=== PATIENT | female | born 1940 | race Caucasian/White ===

== ENCOUNTER 2023-09-30 15:21 | Emergency (ER) | payer BC, SELFPAY ==
[2023-09-30 15:24] VITALS: BP 157/90
--- NOTE | 2023-09-30 19:01 | ED.MUSCINJ ---
HPI-Injury
General
Chief Complaint: Musculo-Skeletal Complaint
Source: patient
Exam Limitations: none
Time Seen by Provider: 09/30/23 18:29
History of Present Illness-Injury
Initial Injury comments:
83-year-old female presents complaining of increased pain and swelling to the right knee. She has known arthritis to the right knee she received a corticosteroid injection into the right knee 8 days ago. Starting yesterday her knee started to
flareup. She denies a fever. She is on Xarelto. No new injury. No other complaints at this time
Phy Exam
Physical Exam
Physical Exam:
General: Well-appearing female no acute respiratory distress
Musculoskeletal exam: Right knee with large effusion but no overlying erythema or excessive warmth. She is able to straight leg raise flexion is limited to about 90 degrees. No significant tenderness on exam
Extremities: No cyanosis or edema.
Injury Course
Orders/Labs/Results
Orders:
Orders
09/30/23 15:28
Knee, Right 4 or More Views [CR Knee- Right 4 Or More View*] Urgent
Comment:
Reason For Exam: pain
MDM/Problems Addressed
Differential Diagnosis Includes:
Knee effusion with pain. Question inflammatory. Do not suspect septic arthritis given lack of fever good motion and lack of skin changes. Could be sequela of underlying degenerative change versus adverse effect from recent corticosteroid
injection.
X-rays obtained through triage with her personally visualized shows a large effusion and significant degenerative change. Discussed with patient. 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 For
therapeutic reasons we discussed aspiration of the knee to regain motion and help pain. She was in agreement. The right knee was aspirated under sterile conditions. Unfortunately the effusion in the knee is hemorrhagic and the majority of
effusion is clotted blood. I was able to receive 10 mL of bloody aspirate. This was not sent for testing as clinical suspicion for septic arthritis is low. Patient cannot do NSAIDs but will prescribe several days of a prednisone to help. Knee
immobilizer applied and will follow-up with her orthopedic
*Critical Care Note
Total Time (30-74mins, 75-104mins- exclusive of procedures): Not Applicable
ED Attending Note
-
Portions of this chart may have been created with voice recognition software.� Occasional wrong word or��sound alike� substitutions may have occurred due to the inherent limitations of voice recognition software.
Discharge Plan
Departure
Patient Disposition: Home (Routine Discharge)
Date of Disposition: 09/30/23
Time of Disposition: 19:10
Patient with high blood pressure during this ER visit?: No
Discharge Problem:
Effusion of knee
Instructions: Muscle and Bone Pain (DC)
Prescriptions:
New
prednisone 10 mg Tablet
See Rx Instructions .ROUTE .COMPLEX Qty: 30 0RF
Rx Instructions:
Take By Mouth:
40 mg daily x3 days, 30 mg daily x3 days,
20 mg daily x3 days, 10 mg daily x3 days.
Referrals:
Vanessa Reyes MD [Family Provider] -
Activity Restrictions/Additional Instructions:
Take prednisone as directed. Use immobilizer for support when ambulating. Follow-up with your orthopedic team
Discharge Date and Time
Print Language: FAROESE
[2023-09-30] MEDS: DELTASONE 50 MG PO (19:18)
[2023-09-30 19:45] VITALS: BP 158/88
== END 2023-09-30 19:49 | disposition home or self-care (01) ==
LOC: EMR 15:21
PROVIDERS: EMERGENCY PHYSICIAN Student in an Organized Health Care Education/Training Program; FAMILY PHYSICIAN Internal Medicine
DX: M25.461 Effusion, right knee (principal); M25.561 Pain in right knee; R26.2 Difficulty in walking, not elsewhere classified; M17.11 Unilateral primary osteoarthritis, right knee; Z79.01 Long term (current) use of anticoagulants
CPT/HCPCS: 20610; 99283; 73564

== ENCOUNTER → 2024-05-20 14:00 | Outpatient (REF) | payer BC, SELFPAY | LOC: HWRCS 14:00 | PROVIDERS: ATTENDING PHYSICIAN Internal Medicine Cardiovascular Disease; FAMILY PHYSICIAN Internal Medicine | DX: I48.20 Chronic atrial fibrillation, unspecified (principal); R01.1 Cardiac murmur, unspecified | CPT/HCPCS: 93306 ==

== ENCOUNTER 2024-08-27 11:58 | Emergency (ER) | payer BC, SELFPAY ==
[2024-08-27 12:10] VITALS: BP 146/102
--- NOTE | 2024-08-27 13:57 | ED.MUSCINJ ---
HPI-Injury
General
Chief Complaint: Musculo-Skeletal Complaint
Source: patient
Exam Limitations: none
Time Seen by Provider: 08/27/24 13:38
History of Present Illness-Injury
Initial Injury comments:
83-year-old female Sonia complaining of left knee pain and foot pain after a fall she sustained last evening. She also fell backwards and hit her head. She is on Xarelto. She did have significant pain at the time of the fall she is able to get
herself back in the bed however overnight the knee swelled and her pain is worse. No other complaints at this time
Phy Exam
Physical Exam
Physical Exam:
General: Well-appearing female no acute respiratory distress HEENT: Normocephalic no scalp abrasion or hematoma
Heart: Regular rate and rhythm
Lungs: Clear no wheeze
Musculoskeletal exam: Left knee with large effusion and diffusely tender. No deformity able to straight leg raise flexion is to about 50 degrees.
Left foot is nontender.
Injury Course
Orders/Labs/Results
Orders:
Orders
08/27/24 12:[address] [CT Head W/o Iv Contrast] Urgent
Comment:
Reason For Exam: head strike +thinner
CR Foot - Left Min 3 Views Urgent
Comment:
Reason For Exam: pain injury
CR Knee - Left 4 Or More View* Urgent
Comment:
Reason For Exam: pain injury
08/27/24 13:56
Acetaminophen with Codeine [Tylenol #3] 1 tablet PO NOW STA
MDM/Problems Addressed
Differential Diagnosis Includes:
Left knee and foot pain after fall with head strike on blood thinner. Consider fracture versus sprain versus underlying degenerative joint disease. Regarding the head consider fracture versus intracranial hemorrhage. CT of the head was ordered
which is negative. X-ray of the left knee shows a large joint effusion but no fracture. There is significant degenerative changes throughout the knee. X-ray left foot demonstrates nondisplaced fracture of the left fifth toe.
Offered knee immobilizer declined. Will evaluate her functional status. She is going home by herself.
*Pulse Oximetry
SaO2: 96
Oxygen Mode of Delivery: Room air
Patient hypoxic: no
*Critical Care Note
Total Time (30-74mins, 75-104mins- exclusive of procedures): Not Applicable
Update Note
Update Note:
X-rays all reviewed and negative other than a small nondisplaced fracture of the left fifth toe proximal phalanx. I suspect symptoms of near related to underlying degenerative change. There may be a traumatic effusion. No indication for
aspiration at this time. Offered knee immobilizer she declined. She was able to walk around here with a walker self to the bathroom.
ED Attending Note
-
Portions of this chart may have been created with voice recognition software.� Occasional wrong word or��sound alike� substitutions may have occurred due to the inherent limitations of voice recognition software.
Discharge Plan
Departure
Patient Disposition: Home (Routine Discharge)
Date of Disposition: 08/27/24
Time of Disposition: 14:44
Patient with high blood pressure during this ER visit?: No
Discharge Problem:
Effusion of knee
Instructions: Muscle and Bone Pain (DC)
Prescriptions:
No Action
prednisone 10 mg Tablet
See Rx Instructions .ROUTE .COMPLEX Qty: 30 0RF
Rx Instructions:
Take By Mouth:
40 mg daily x3 days, 30 mg daily x3 days,
20 mg daily x3 days, 10 mg daily x3 days.
Referrals:
Vanessa Reyes MD [Family Provider]
Activity Restrictions/Additional Instructions:
Use walker to ambulate. Elevate for swelling. Continue with Tylenol if needed for pain. Follow-up with the orthopedic doctor.
Interventions
Interventions:
*Risk Screen - Suicide Last Done: 08/27/24 12:10
*General Assessment Last Done: 08/27/24 12:10
*Neglect/Abuse Screening Last Done: 08/27/24 12:10
*ED- Fall Risk Assessment Last Done: 08/27/24 12:10
*ED COVID-19 Vaccine History Last Done: 08/27/24 12:10
ED-Musculoskeletal Assessment Last Done: 08/27/24 14:15
Discharge Date and Time
Print Language: ESTONIAN
[2024-08-27] MEDS: TYLENOL #3 1 TABLET PO (14:08)
== END 2024-08-27 14:49 | disposition home or self-care (01) ==
LOC: EMR 11:58
PROVIDERS: EMERGENCY PHYSICIAN Student in an Organized Health Care Education/Training Program; FAMILY PHYSICIAN Internal Medicine
DX: M25.462 Effusion, left knee (principal); S09.90XA Unspecified injury of head, initial encounter; M79.672 Pain in left foot; W19.XXXA Unspecified fall, initial encounter; Z79.01 Long term (current) use of anticoagulants
CPT/HCPCS: 99284; 70450; 73564; 73630